=== PATIENT | female | born 1945 | race Caucasian/White ===

== ENCOUNTER 2017-02-21 13:50 | Emergency (ER) | payer OTHER ==
[2017-02-21] MEDS ORDERED: methylPREDNISolone NA SUCC 125 MG/2 ML VIAL IVPB ONE (13:51)
[2017-02-21] MEDS ORDERED: FAMOTIDINE 20 MG/50 ML IVPB 50 ML IVPB ONE (13:52)
--- NOTE | 2017-02-21 14:09 | PDOC ---
History of Present Illness - General Chief Complaint: Allergic Reaction Stated Complaint: ALLERGIC REACTION Time Seen by Provider: 02/21/17 13:51 History Source: Patient Exam Limitations: No Limitations - History of Present Illness Initial Comments: 02/21/17 14:04 71 yo F s/p MRI brain, here with c/o allergic reaction from contrast. started to get eye itchig and swelling, small hives developed near chin. no tongue or lip swelling. no difficulty breathing or shortness of breath. no prior h/o allergic reaction. given contrast just 10 min prior to arrival. Past History - Past Medical History Allergies/Adverse Reactions: Allergies Allergy/AdvReac Type Severity Reaction Status Date / Time No Known Allergies Allergy Verified 02/21/17 13:51 Home Medications: Ambulatory Orders Prednisone [Deltasone -] 20 mg PO BID #6 tablet 02/21/17 Review of Systems - Review of Systems Constitutional: No: Chills, Diaphoresis Respiratory: No: Cough, Orthopnea Cardiac (ROS): No: Chest Pain, Edema Musculoskeletal: No: Back Pain Integumentary: Yes: Rash, Other (small urticarial like rash chin). No: Bruising Neurological: No: Headache All Other Systems: Reviewed and Negative *Physical Exam - Physical Exam General Appearance: Yes: Nourished HEENT: positive: Normal Voice, Pharynx Normal, Other (mild periorbital swelling near medial eyes bilaterally. no tongue orlip swelling. no stridor) Neck: positive: Trachea midline. negative: Stridor Respiratory/Chest: positive: Lungs Clear, Normal Breath Sounds. negative: Wheezing Cardiovascular: positive: Regular Rhythm, Regular Rate, S1, S2 Gastrointestinal/Abdominal: positive: Normal Bowel Sounds. negative: Tender, Flat Musculoskeletal: positive: Normal Inspection Extremity: positive: Normal Inspection Integumentary: positive: Normal Color, Dry, Warm Neurologic: positive: Fully Oriented, Alert, Normal Mood/Affect Medical Decision Making - Medical Decision Making 02/21/17 14:10 71 yo F allergic reaction to iv dye. plan treat, and observe. 02/21/17 15:31 pt much improved. will dc home. *DC/Admit/Observation/Transfer Diagnosis at time of Disposition: Allergic reaction to contrast dye - Discharge Dispostion Disposition: HOME Condition at time of disposition: Improved Admit: No - Prescriptions Prescriptions: Prednisone [Deltasone -] 20 mg PO BID #6 tablet - Patient Instructions Printed Discharge Instructions: DI for Adverse Drug Reaction -- Allergic Additional Instructions: you should take prednisone 20 mg twice daily x 3 days. you should return immediately for shortness of breath, lip or tongue swelling or any concerns. you should also take benadryl 25 mg three times daily as needed for itching. you are allergic to IV dye, and should not have iv dye or contrast in the future.
[2017-02-21 15:04] VITALS: PULSE 78; TEMP 98.3; BMI 29.9
[2017-02-21 15:52] VITALS: BP 129/77
== END 2017-02-21 15:40 | disposition home or self-care (01) ==
LOC: FER 13:50
PROC: 3E033GC Introduction of Other Therapeutic Substance into Peripheral Vein, Percutaneous Approach (ICD-10-PCS; principal; 2017-02-21)
DX: R21 Rash and other nonspecific skin eruption (principal); T50.905A Adverse effect of unspecified drugs, medicaments and biological substances, initial encounter; Y92.9 Unspecified place or not applicable
CPT/HCPCS: 70553-TC; 99284-25; C1887